=== PATIENT | male | born 1980 | race African-American/Black ===

== ENCOUNTER 2020-09-09 09:45 | Emergency (ER) | payer OTHER ==
[~2020-09-09] VITALS: Ht 180.3 cm; Wt 99.8 kg
[2020-09-09] MEDS ORDERED: DEPO-TESTO100 MG/1 M IM (10:07)
[2020-09-09] MEDS ORDERED: ZPAK PO (10:52)
[2020-09-09] MEDS ORDERED: ZOFRAN ODT4 MG SUBLING (10:52)
[2020-09-09] MEDS ORDERED: PREDNISONE 20 M20 M1 PO (10:52)
[2020-09-09 11:02] VITALS: BP 159/76
== END 2020-09-09 11:03 | disposition home or self-care (01) ==
LOC: M.ERS 09:45
DX: U07.1 COVID-19 (principal)